=== PATIENT | male | born 1930 | race Caucasian/White ===

== ENCOUNTER 2017-07-09 12:49 | Day surgery (SDC) | payer MEDICARE, BC ==
[~2017-07-09] VITALS: Ht 167.6 cm; Wt 56.2 kg
--- NOTE | ~2017-07-09 | OP ---
PATIENT NAME: MEDARDO HARRELL MEDICAL RECORD: [id number] :30 LOCATION:[facility] ADMISSION DATE: SURGEON: VANESSA LOPEZ MD DATE OF OPERATION: 07/09/2017 PREOPERATIVE DIAGNOSES: 1. Hemorrhoids. 2. Rectal bleeding. POSTOPERATIVE DIAGNOSES: 1. Hemorrhoids. 2. Rectal bleeding. PROCEDURES PERFORMED: 1. Rectal examination under anesthesia. 2. Internal hemorrhoid banding times 2. COMPLICATIONS: None. SPECIMENS: None. Case was contaminated. ESTIMATED BLOOD LOSS: Minimal. OPERATIVE COURSE: After consent was obtained, the patient was taken to the operating room and placed in the supine position on the operating table. Next, general anesthesia was given via endotracheal intubation. After the perineum was prepped and draped in typical sterile fashion, time-out was taken to confirm the correct patient and procedure. Digital rectal exam was performed. There were no external hemorrhoids noted. No masses. A 30 cc of local anesthetic was injected circumferentially in a perineal block. The rectum was serially dilated using the [employer] retractors. An internal hemorrhoid was identified at the 6 o'clock position. It was banded with the banding device. A second hemorrhoid was located at the left lateral position. A second band was placed on the internal hemorrhoid column. At that time, remaining portion of rectum was examined and there were no further evidence of internal hemorrhoids and no area of bleeding. At this time, the procedure was terminated. The patient was extubated and transferred to PACU in stable condition. At the end of the case, all needle and instrument counts were correct. No complications occurred. TRANSINT:[id number] Voice Confirmation ID: [id number] DOCUMENT ID: [id number] VANESSA LOPEZ MD CC: [id number] DICTATION DATE: 07/09/17 1646 [employer]ZER ASSISTANT: 07/09/17 194 [facility] 07/09/17 [facility] [address] [place] [address]
[2017-07-09 13:27] LABS: BASOPHILS 0.3 % (0-2); EOSINOPHILS 3.2 % (0-7); HEMATOCRIT 35.1 % (42.0-54.0); HEMOGLOBIN 11.5 g/dL (13.5-17.5); IMMATURE GRANULOCYTES 0.3 % (0-5); LYMPHOCYTES 25.4 % (15-50); MCH 31.1 pg (26.0-34.0); MCHC 32.8 g/dL (31.0-37.0); MCV 94.9 fL (80.0-100.0); MEAN PLATELET VOLUME 8.9 fL (7.4-10.4); MONOCYTES 8.6 % (2-11); NEUTROPHILS 62.2 % (40-80); PLATELET COUNT 357 10x3/uL (130-400); RDW 13.2 % (11.5-14.5); WBC 6.9 10x3/uL (4.8-10.8)
[2017-07-09] MEDS ORDERED: BENADRYL25 MG PO (13:32)
[2017-07-09] MEDS ORDERED: ADVIL200 MG PO (13:32)
[2017-07-09] MEDS ORDERED: MULTIPLE VITAMI1 TA1 PO (13:33)
[2017-07-09 13:41] VITALS: BP 112/70; Ht 167.6 cm; Wt 56.2 kg
[2017-07-09 13:58] LABS: CALC OSMOLALITY 283 mosm/kg (275-300); CALCIUM 8.9 mg/dL (8.5-10.1); CARBON DIOXIDE 25.5 mmol/L (21.0-32.0); CHLORIDE - SERUM 107 mmol/L (98-107); CREATININE - SERUM 0.9 mg/dL (0.6-1.3); GLUCOSE 83 mg/dL (74-106); POTASSIUM - SERUM 3.7 mmol/L (3.5-5.1); SODIUM 142 mmol/L (136-145); UREA NITROGEN 17 mg/dL (7-18); eGFR NON AFRICAN AMERICAN 85 mL/min (90-120)
[2017-07-09] MEDS ORDERED: MIRALAX17 GM PO (16:41)
== END 2017-07-09 19:08 | disposition home or self-care (01) ==
LOC: D.OPS 12:49 → D.PAN 15:00 → D.OPS 19:08
PROVIDERS: Anesthesiology
DX: K64.8 Other hemorrhoids (principal); Z87.891 Personal history of nicotine dependence; Z01.812 Encounter for preprocedural laboratory examination; K62.5 Hemorrhage of anus and rectum